=== PATIENT | female | born 1985 | race African-American/Black ===

== ENCOUNTER 2022-03-06 06:27 | Day surgery (SDC) | payer OTHER ==
[~2022-03-06] VITALS: Ht 162.6 cm; Wt 97.3 kg
[2022-03-06] MEDS ORDERED: BENZOCAINE 20% 50 MCG/SPRAY 57 GM TP ONE (06:28)
[2022-03-06] MEDS ORDERED: LIDOCAINE 2% 11 ML JELLY TP ONE (06:28)
[2022-03-06] MEDS ORDERED: LIDOCAINE 4% 50 ML SOLUTION TP ONE (06:28)
[2022-03-06] MEDS ORDERED: ALBUTEROL SULFATE 2.5 MG/0.5 ML NEB SOLUTION NEB ONE (06:28)
[2022-03-06] MEDS ORDERED: LEVALBUTEROL HCL 1.25 MG/0.5 ML NEB SOLUTION NEB ONE (06:28)
[2022-03-06] MEDS ORDERED: SODIUM CHLORIDE 0.9% 1,000 ML ONE (07:04)
[2022-03-06 07:08] LABS: COVID AG,FIA SOURCE NASAL SWAB
[2022-03-06] MEDS ORDERED: ADAL40PE5 IM (07:24)
[2022-03-06] MEDS ORDERED: SULF500T60 PO (07:24)
[2022-03-06] MEDS ORDERED: PRED-729 PO (07:24)
[2022-03-06] MEDS ORDERED: OMEP20 PO (07:24)
[2022-03-06] MEDS ORDERED: MELA5TAB40 PO (07:24)
[2022-03-06] MEDS ORDERED: ESCI-8 PO (07:24)
[2022-03-06] MEDS ORDERED: FLUT1BLS3 PO (07:24)
[2022-03-06] MEDS ORDERED: LAMO25TA25 PO (07:24)
[2022-03-06] MEDS ORDERED: MONT-35 PO (07:24)
[2022-03-06] MEDS ORDERED: ACYC-138 PO (07:24)
[2022-03-06] MEDS ORDERED: HYDR-4527 PO (07:24)
[2022-03-06] MEDS ORDERED: CETI-450 PO (07:24)
[2022-03-06] MEDS ORDERED: GABA-1181 PO (07:24)
[2022-03-06] MEDS ORDERED: DICL100G51 TP (07:24)
[2022-03-06] MEDS ORDERED: ARIP15TA27 PO (07:24)
[2022-03-06] MEDS ORDERED: SODIUM CHLORIDE 0.9% 1,000 ML IV ONE (08:00)
[2022-03-06] MEDS ORDERED: FentaNYL CITRATE PF 100 MCG/2 ML VIAL ONE (08:16)
[2022-03-06] MEDS ORDERED: MIDAZOLAM HCL 5 MG/ML VIAL ONE (08:16)
[2022-03-06] MEDS ORDERED: MethylPREDNISolone SOD SUCC 125 MG/2 ML VIAL IVP ONE (09:30)
[2022-03-06] MEDS ORDERED: PROMETH/PHENYLEPHRINE/CODEINE 5 ML ORAL.SYG PO ONE (10:00)
[2022-03-06] MEDS ORDERED: OXYGEN THERAPY IH SCH (20:00)
== END 2022-03-06 11:25 | disposition home or self-care (01) ==
LOC: SURGERY 06:27
PROVIDERS: ATTEND Internal Medicine Critical Care Medicine
DX: J38.4 Edema of larynx (principal); B37.0 Candidal stomatitis; G47.30 Sleep apnea, unspecified; Z87.891 Personal history of nicotine dependence; Z98.890 Other specified postprocedural states; Z87.01 Personal history of pneumonia (recurrent); Z79.899 Other long term (current) drug therapy; Z72.89 Other problems related to lifestyle
CPT/HCPCS: 31623; 84703; 87206; 87101; 87220; 87070; 31624; 94640; 71045; 87015; 87426; J3010; J2930; J2370; J2250; Q9967; J7030; C9803; J7613; Z7610